=== PATIENT | female | born 1955 | race Caucasian/White ===

== ENCOUNTER 2020-12-18 11:37 | Outpatient (CLI) | payer OTHER | END 2020-12-18 11:38 | disposition home or self-care (01) | LOC: MADRAD 11:37 | PROVIDERS: ATTEND Nurse Practitioner Family | DX: S39.92XA Unspecified injury of lower back, initial encounter (principal) | CPT/HCPCS: 72110 ==

== ENCOUNTER 2021-11-13 12:01 | Outpatient (CLI) | payer MEDICARE ==
[2021-11-13 12:39] LABS: CKMB 0.7 ng/mL (0-6.6); Troponin I Less than 0.010 ng/mL (< 0.028)
== END 2021-11-13 12:02 | disposition home or self-care (01) ==
LOC: MADLAB 12:01
PROVIDERS: ATTEND Family Medicine
DX: R07.9 Chest pain, unspecified (principal)
CPT/HCPCS: 36415; 82553; 84484; 93005; 93010

== ENCOUNTER 2021-12-25 13:47 | Outpatient (CLI) | payer MEDICARE | END 2021-12-25 13:48 | disposition home or self-care (01) | LOC: MADRAD 13:47 | PROVIDERS: ATTEND Family Medicine | DX: M25.551 Pain in right hip (principal); M16.11 Unilateral primary osteoarthritis, right hip; M79.89 Other specified soft tissue disorders; W19.XXXA Unspecified fall, initial encounter ==

== ENCOUNTER 2022-03-22 00:57 | Emergency (ER) | payer MEDICARE ==
[2022-03-22] MEDS ORDERED: methylPREDNISolone Sod Succ/PF 125 MG/2 ML VIAL ONE (01:03)
[2022-03-22] MEDS ORDERED: diphenhydrAMINE 50 MG/ML VIAL ONE (01:03)
[2022-03-22] MEDS ORDERED: Pantoprazole 40 MG VIAL ONE (01:03)
[2022-03-22] MEDS ORDERED: Famotidine/PF 20 mg/2ml Vial ONE (01:14)
== END 2022-03-22 01:47 | disposition home or self-care (01) ==
LOC: MADERS 00:57
DX: L50.9 Urticaria, unspecified (principal); E11.9 Type 2 diabetes mellitus without complications; Z79.899 Other long term (current) drug therapy
CPT/HCPCS: 96374; 96375; C9113; J1200; J2930; S0028

== ENCOUNTER 2022-11-17 08:47 | Emergency (ER) | payer MEDICARE ==
[2022-11-17 09:53] LABS: Bilirubin Negative (Negative); Blood, Urine Large (Negative); Clarity Slightly Cloudy (Clear); Glucose, Urine (Dipstick) >=1000 mg/dL (Negative); Ketone, Urine Negative (Negative); Leukocyte Small (Negative); Nitrite Negative (Negative); Protein, Urine (Dipstick) Trace mg/dL (Neg-Trace); Specific Gravity, Urine 1.015 (1.005-1.030); Urobilinogen 0.2 mg/dL (Less than 2); pH, Urine 5.5 (5.0-9.0)
[2022-11-17 10:03] LABS: CAUTI Indications for Culture Dysuria,urgency,freq; WBC/HPF Greater Than 50 HPF (0-3)
[2022-11-17 10:04] LABS: Bacteria/HPF 1+ HPF (None Seen); Urine Culture Reflex Yes Yes
== END 2022-11-17 10:35 | disposition home or self-care (01) ==
LOC: MADERS 08:47
DX: N39.0 Urinary tract infection, site not specified (principal); E11.9 Type 2 diabetes mellitus without complications; Z79.82 Long term (current) use of aspirin; Z79.899 Other long term (current) drug therapy
CPT/HCPCS: 81001; 87086; 99283